=== PATIENT | female | born 1950 | race Caucasian/White ===

== ENCOUNTER 2017-01-03 18:08 | Emergency (ER) | payer OTHER ==
[~2017-01-03] VITALS: Ht 165.1 cm; Wt 72.7 kg
[2017-01-03 18:11] VITALS: BP 176/80; PULSE 60; RESP 20; O2SAT 99
--- NOTE | 2017-01-03 19:55 | ED.REPORT ---
HPI-General Illness Date of Service Jan 03, 2017 ED Provider: Doc,Ed MD The patient is a 66 year old female who presents to the ED c/o of neck pain onset yesterday. Pain is worse with movement. She denies any injuries or surgeries. A few months ago she hurt her ribs. She has tried ibuprofen, Aleve, and Tylenol with no relief of symptoms. She thinks that she sprained a muscle in her neck. Nursing Notes Stated Complaint: NECK PAIN Chief Complaint: Head, Face, Neck Trauma Nursing Notes Reviewed: Yes Allergies: Coded Allergies: No Known Allergies (Unverified , 01/03/17) Scheduled PRN Cyclobenzaprine (Cyclobenzaprine) 5 Mg Tablet 5 MG PO HS PRN PRN Spasm General Time Seen by MD: 19:54 Chief Complaint Other (neck pain) Hx Obtained From: Patient Arrived By: Walk-in Sudden in Onset?: Yes Onset Occurred: Yesterday Symptom Duration: Since onset Location: : Neck Quality: Painful Severity: Current: Moderate Recent Healthcare: No recent doctor visit, No recent hospitalization Similar Sx Previous: No Review of Systems Full Review of Systems Constitutional: Denies: Chills, Fever Musculoskeletal: Reports: Neck pain Neurologic: Denies: Change LOC, Dizziness, Headache, Lightheaded, Numbness Complete sys rev & neg: except as marked. Physical Exam Vital Signs Vital Signs Date Time Temp Pulse Resp B/P Pulse Ox O2 Delivery O2 Flow Rate FiO2 01/03/17 21:27 53 18 177/101 98 Room Air 01/03/17 18:11 36.9 60 20 176/80 99 Room Air Initial VS: Reviewed General/Constitutional: Awake, Alert, No acute distress, Cooperative Head / Eyes: Atraumatic, Normocephalic, PERRL, EOMI ENT: Atraumatic, Mucous membranes moist Neck: No adenopathy, No swelling, No midline vertebral tend Respiratory / Chest: Atraumatic, Breath sounds NL, Breath sounds = bilat, No respiratory distress Cardiovascular: Heart rate NL, Regular rhythm, Heart sounds NL, No gallop, No murmurs, No rubs Back: Atraumatic, Inspection NL Upper Extremities Upper Extremity / MS: Atraumatic, Inspection NL, No deformity Lower Extremity / Pelvis / MS: Atraumatic, Inspection NL, No deformity Skin: Atraumatic, Warm, Dry Neurologic: Oriented X3, Speech NL, No motor deficits Re-Eval/Medical Decision Med Decision/Clinical Course The patient is a 66 year old female who presents to the ED c/o of neck pain onset yesterday. Pain is worse with movement. She denies any injuries or surgeries. A few months ago she hurt her ribs. She has tried ibuprofen, Aleve, and Tylenol with no relief of symptoms. She thinks that she sprained a muscle in her neck. Here in the emergency department the patient is afebrile with stable vital signs and examination as above. Her pain is easily reproducible with palpation and movement of her neck. Presentation is not suggestive of acute coronary syndrome, pulmonary embolism or other significant cardiopulmonary process. I do not feel that laboratory or imaging studies are indicated. She is completely logically intact. She has no meningismus or fever suggestive of meningitis. There are no skin changes suggestive of abscess or cellulitis. 2054: Plan for Toradol shot, muscle relaxants, and discharge. Pt understands and agrees with plan. F/U and RTER warnings given. All questions addressed. After above interventions patient reported significant subjective improvement. I advised her to continue ice packs, hot packs and NSAIDs. She will take Flexeril as needed for breakthrough symptoms at night only. She will not combine this with any other pain medications or alcohol. She will follow up also with her primary care physician. Prior to discharge follow-up and return precautions were reviewed in detail with the patient who verbalized understanding and agreement with the plan. The patient was discharged in stable condition. Counseled Regarding: Diagnosis, Lab results, Need for follow-up, When/why to return to ED Discharge & Departure Primary Impression: Neck sprain Encounter type: initial encounter Qualified Code: S13.9XXA - Sprain of joints and ligaments of unspecified parts of neck, initial encounter Additional Impression: Neck pain Disposition: Home Discharge Condition All VS Reviewed: Yes Condition: Stable Additional Instructions: Thank you for entrusting us with your care today. The Toradol shot will help with pain. Do not drink alcohol, drive or take any other narcotic pain medications while you are on the muscle relaxant. Follow up with your primary care physician next week. Return to the Emergency Department for any new or worsening symptoms including increased pain, fever, nausea, vomiting, or loss of consciousness. Referrals: NOPCP (PCP) Scribe Attestation Portion of this note were transcribed by Bianca Castelan. I, Dr. Payne, personally performed the history, physical exam, and medical decision-making: I reviewed and confirmed the accuracy for the information in the transcribed note. Signed by: chris Burnette, 01/03/17 2200 copies to: [facility] Jesse Payne MD Jan 03, 2017 19:55 Bianca Castelan Jan 03, 2017 20:58
[2017-01-03] MEDS ORDERED: CYCL5TAB PO (20:59)
[2017-01-03 21:27] VITALS: BP 177/101; PULSE 53; RESP 18; O2SAT 98
== END 2017-01-03 21:25 | disposition home or self-care (01) ==
LOC: SED 18:08
DX: S13.9XXA Sprain of joints and ligaments of unspecified parts of neck, initial encounter (principal); X58.XXXA Exposure to other specified factors, initial encounter; Y92.9 Unspecified place or not applicable; Y93.9 Activity, unspecified; Y99.9 Unspecified external cause status; I25.2 Old myocardial infarction; M81.8 Other osteoporosis without current pathological fracture; Z87.828 Personal history of other (healed) physical injury and trauma
CPT/HCPCS: 96372; 99284; J1885